=== PATIENT | female | born 1985 | race Caucasian/White ===

== ENCOUNTER 2016-12-19 21:25 | Outpatient (CLI) | payer BC ==
[~2016-12-19] VITALS: Ht 170.2 cm; Wt 82.0 kg
[~2016-12-19 21:25] MED LIST: MTR600X PO; PRENTAB26 PO; VITACAP26
[2016-12-19 21:30] VITALS: Ht 170.2 cm; Wt 82.0 kg
[2016-12-19] MEDS ORDERED: LACTATED RINGER'S 1000ML 1,000 ML IV SCH (22:26)
[2016-12-19] MEDS ORDERED: LACTATED RINGER'S 1000ML 500 ML IV ONE (22:26)
[2016-12-19] MEDS ORDERED: BETAMETH SOD PHOS/ACETATE IA 6 MG/ML IM SCH (22:30)
[2016-12-19] MEDS ORDERED: BETAMETH SOD PHOS/ACETATE IA 6 MG/ML ONE (23:07)
--- NOTE | 2016-12-20 02:45 | HISTORY & PHYSICAL EXAMINATION ---
DATE OF ADMISSION: 12/19/2016 HISTORY OF PRESENT ILLNESS: This is a 31-year-old, G2, P1, with due date of 03/10/2017 making it 38 weeks' and 3 days with a known history of complete placenta previa. The patient experienced vaginal bleeding today, called and was asked to come to labor and delivery. She had no shortness of breath, no chills and no bleeding. The bleeding was minimal on arrival to labor and delivery. She did report passing a couple of heavy clots at home while she was doing her laundry. Speculum exam done shows cervix is closed and thick. There is, however, some old blood in the vagina. The cervical os appears to have some minimal to mild blood. Cervix as stated above is however closed. course has been unremarkable except for complete placenta previa without bleeding. PAST MEDICAL HISTORY: None. PAST SURGICAL HISTORY: Dental surgery. SOCIAL HISTORY: The patient denies tobacco, drug or alcohol use. FAMILY HISTORY: Noncontributory. ALLERGIES: TO OXYCODONE. MEDICATIONS: The patient is on vitamins and stool softener. PHYSICAL EXAMINATION: GENERAL: Well-developed and well-nourished white female, in no acute distress. HEART: S1, S2, regular rhythm and rate. LUNGS: Clear to auscultation bilaterally. ABDOMEN: Nontender and nondistended. heart rate is category 1. PELVIC: As dictated in the HPI. EXTREMITIES: No cyanosis, clubbing or edema. ASSESSMENT AND PLAN: A 31-year-old, G2, P1 at 28 weeks' with known placenta previa. The patient has had episode of bleeding. The bleeding is presently stable. The patient is being transferred to [facility] where she will be followed there by maternal medicine and probably observed for a couple of days. [facility]ITAL[facility]omin[facility]
== END 2016-12-20 00:05 | disposition short-term general hospital (02) ==
LOC: C.LD 21:25 → C.OPB 21:25
PROVIDERS: ATTEND Obstetrics & Gynecology
DX: O44.03 Complete placenta previa NOS or without hemorrhage, third trimester (principal); Z3A.28 28 weeks gestation of pregnancy; Z88.5 Allergy status to narcotic agent

== ENCOUNTER 2017-01-07 19:15 | Outpatient (CLI) | payer BC ==
[~2017-01-07] VITALS: Ht 170.2 cm; Wt 82.0 kg
[2017-01-07] MEDS ORDERED: LACTATED RINGER'S 1000ML 500 ML IV ONE (19:23)
[2017-01-07] MEDS ORDERED: LACTATED RINGER'S 1000ML 1,000 ML IV SCH (19:23)
[2017-01-07 20:06] LABS: BASO % 0.1 %; BASO ABS # 0.01 K/uL (0-0.2); COMPLETE YES; EOS % 0.5 %; HEMATOCRIT 35.5 % (37-47); IG% 0.5 %; LYMPH % 20.9 %; LYMPH ABS # 1.61 K/uL (1.2-3.4); MEAN CELL VOLUME 93.4 fL (80-100); MEAN CORPUSCULAR HEMOGLOBIN 32.1 pg (25-34); MEAN CORPUSCULAR HGB CONC 34.4 g/dl (32-36); MEAN PLATELET VOLUME 10.5 fL (7.4-10.4); MONO % 10.3 %; NEUT % 67.7 %; PLATELET COUNT 199 K/uL (130-400); WHITE BLOOD COUNT 7.69 K/uL (4.8-10.8)
[2017-01-07 20:16] LABS: INR 0.9 (0.9-1.1); PARTIAL THROMBOPLASTIN RATIO 0.9; PROTHROMBIN TIME (PATIENT) 9.9 SECONDS (9.0-12.0)
[2017-01-07 20:23] VITALS: Ht 170.2 cm; Wt 82.0 kg
[2017-01-07] MEDS ORDERED: MISCCAP80 (20:23)
[2017-01-07 20:30] LABS: ALT/SGPT 13 U/L (12-78); BLOOD UREA NITROGEN 8 mg/dl (7-18); BUN/CREATININE RATIO 12.2 (10-20); CALCIUM 8.3 mg/dl (8.5-10.1); CARBON DIOXIDE 24 mmol/L (21-32); CHLORIDE 108 mmol/L (98-107); CREATININE 0.65 mg/dl (0.60-1.20); GLUCOSE 96 mg/dl (70-99); POTASSIUM 3.4 mmol/L (3.5-5.1); SODIUM 141 mmol/L (136-145)
[2017-01-07 20:33] LABS: ALKALINE PHOSPHATASE 70 U/L (45-117); AST/SGOT 10 U/L (15-37)
[2017-01-07 20:58] LABS: FIBRINOGEN* 330 mg/dl (184-400)
[2017-01-07] MEDS ORDERED: POTASSIUM CHLORIDE INJ 20 MEQ in LACTATED RINGER'S 1000ML 1,000 ML IV SCH (21:00)
--- NOTE | 2017-01-07 21:20 | Progress Note ---
Progress Note Date of Service Jan 07, 2017. Progress Note Admit Note H&P dictated FHT Cat 1 no active bleeding now Will continue IV fluids monitor for any bleeding Type and cross for 2 Units PRBC's Last 24 Hours Test 01/07/17 19:58 White Blood Count 7.69 K/uL Red Blood Count 3.80 M/uL Hemoglobin 12.2 g/dL Hematocrit 35.5 % Mean Corpuscular Volume 93.4 fL Mean Corpuscular Hemoglobin 32.1 pg Mean Corpuscular Hemoglobin Concent 34.4 g/dl Platelet Count 199 K/uL Mean Platelet Volume 10.5 fL Neutrophils (%) (Auto) 67.7 % Lymphocytes (%) (Auto) 20.9 % Monocytes (%) (Auto) 10.3 % Eosinophils (%) (Auto) 0.5 % Basophils (%) (Auto) 0.1 % Neutrophils # (Auto) 5.20 K/uL Lymphocytes # (Auto) 1.61 K/uL Monocytes # (Auto) 0.79 K/uL Eosinophils # (Auto) 0.04 K/uL Basophils # (Auto) 0.01 K/uL RDW Standard Deviation 43.5 fL RDW Coefficient of Variation 12.7 % Immature Granulocyte % (Auto) 0.5 % Immature Granulocyte # (Auto) 0.04 K/uL Prothrombin Time 9.9 SECONDS Prothromb Time International Ratio 0.9 Activated Partial Thromboplast Time 24.4 SECONDS Partial Thromboplastin Ratio 0.9 Fibrinogen 330 mg/dl Fibrin Degradation Products <10 mcg/ml Sodium Level 141 mmol/L Potassium Level 3.4 mmol/L Chloride Level 108 mmol/L Carbon Dioxide Level 24 mmol/L Anion Gap 9.0 mmol/L Blood Urea Nitrogen 8 mg/dl Creatinine 0.65 mg/dl Est Creatinine Clear Calc Drug Dose 136.9 ml/min Estimated GFR () 136.2 Estimated GFR (Non- 117.5 BUN/Creatinine Ratio 12.2 Random Glucose 96 mg/dl Calcium Level 8.3 mg/dl Total Bilirubin 0.2 mg/dl Direct Bilirubin < 0.1 mg/dl Aspartate Amino Transf (AST/SGOT) 10 U/L Alanine Aminotransferase (ALT/SGPT) 13 U/L Alkaline Phosphatase 70 U/L Total Protein 6.3 gm/dl Albumin 2.4 gm/dl
--- NOTE | 2017-01-07 22:00 | HISTORY & PHYSICAL EXAMINATION ---
DATE OF ADMISSION: 01/07/2017 CHIEF COMPLAINT: Vaginal bleeding. HISTORY OF PRESENT ILLNESS: The patient is a 31-year-old white female 2, para 1-0-0-1 at 31 and 1 weeks with a known complete placenta previa; who was seen earlier in the day in the office for dark brown spotting and an episode of bleeding around 6:30 tonight, saturating about one-third of a kee pad. There is no clots and she is not having any contractions or uterine irritability. She presents to labor and delivery for observation and monitoring. Upon being seen in labor room, her blood pressure and vitals were stable. She was in no acute distress and not actively bleeding. Labs were drawn, IV started. Blood was typed and crossed for 2 units of packed cells. Ultrasound done today reveals a complete previa, cervix is closed. PAST MEDICAL HISTORY: Noncontributory. PAST SURGICAL HISTORY: Negative. PAST OBSTETRICAL HISTORY: x1 at 40 weeks. SOCIAL HISTORY: Denies smoking, alcohol or drug use. ALLERGIES: ACETAMINOPHEN AND HYDROCODONE. MEDICATIONS: vitamins. PHYSICAL EXAMINATION: HEENT: Within normal limits. LUNGS: Clear to auscultation. COR: Regular rate and rhythm. ABDOMEN: Soft. heart tone category 1 with no contractions or irritability. PELVIC: No vaginal bleeding upon presentation. Old clotted blood with some streaks on her pad. NEUROLOGICALLY: Intact. EXTREMITIES: Within normal limits. No edema. ASSESSMENT: Complete placenta previa. PLAN: We will determine labs, keep n.p.o., type and screen, IV. The patient received steroids approximately a week and a half ago when she was at [place]. [facility]
--- NOTE | 2017-01-07 22:33 | Progress Note ---
Progress Note Date of Service Jan 07, 2017. Progress Note I spoke with Dr. Mccall MFM fellow at [facility] [place] at [place] and spoke with Dr. Whaley the covering [employer]. Will transfer to L&D for complete placenta previa at 31.1 weeks due to second episode of vaginal bleeding in 2 weeks. Patient not actively bleeding now and is stable for transport.
== END 2017-01-07 23:06 | disposition short-term general hospital (02) ==
LOC: C.LD 19:15 → C.OPB 19:15
PROVIDERS: ATTEND Obstetrics & Gynecology
DX: O44.13 Complete placenta previa with hemorrhage, third trimester (principal); Z3A.31 31 weeks gestation of pregnancy

== ENCOUNTER 2017-01-23 10:17 | Outpatient (CLI) | payer BC ==
[~2017-01-23] VITALS: Ht 170.2 cm; Wt 82.7 kg
[~2017-01-23 10:17] MED LIST changes: +MISCCAP80; -MTR600X PO; -VITACAP26
[2017-01-23] MEDS ORDERED: LACTATED RINGER'S 1000ML 500 ML IV ONE (10:22)
[2017-01-23] MEDS ORDERED: LACTATED RINGER'S 1000ML 1,000 ML IV SCH (10:22)
[2017-01-23 10:34] VITALS: Ht 170.2 cm; Wt 82.7 kg
--- NOTE | 2017-01-23 11:17 | Progress Note ---
Progress Note Date of Service Jan 23, 2017. Progress Note 31 WF P1001 at 33.3 weeks presents this AM with bleeding after [place] [facility]. Patient passed a plum sized clot this AM and had bright red streaks of blood mixed with dark rust brown old blood on her pad when she presented to L&D. No contractions on monitor. FHT Cat 1. I spoke with OB litigation partner Dr. Whaley and [place] [facility] [place]. Patient received 2 complete doses of steroids along with Magnesium for neuroprotection in previous hospitalization.
== END 2017-01-23 11:58 | disposition short-term general hospital (02) ==
LOC: C.OPB 10:17 → C.LD 10:19 → C.OPB 10:29 → UNDOADMIN 10:29 → C.LD 10:29 → UNDODISIN 11:58 → C.LD 11:58 → EDSTATUS 03-10 10:15
PROVIDERS: ATTEND Obstetrics & Gynecology
DX: O44.13 Complete placenta previa with hemorrhage, third trimester (principal); Z3A.33 33 weeks gestation of pregnancy